=== PATIENT | male | born 1935 | race Caucasian/White ===

== ENCOUNTER 2017-01-21 13:08 | Inpatient (IN) | payer MEDICARE ==
[~2017-01-21] VITALS: Ht 172.7 cm; Wt 89.9 kg
[2017-02-02] MEDS ORDERED: CAL-500T PO (12:37)
[2017-02-02] MEDS ORDERED: APIX5TAB PO (12:37)
[2017-02-02] MEDS ORDERED: ZYRT10CA PO (12:37)
[2017-02-02] MEDS ORDERED: MOME0.1O20 TOPICAL (12:37)
[2017-02-02] MEDS ORDERED: GLIP10TA6 PO (12:37)
[2017-02-02] MEDS ORDERED: FURO20TA PO (12:37)
[2017-02-02] MEDS ORDERED: ROSU1TAB6 PO (12:37)
[2017-02-02] MEDS ORDERED: METF1000 PO (12:37)
[2017-02-02] MEDS ORDERED: ULOR40TA PO (12:37)
[2017-02-02] MEDS ORDERED: VALS1TAB65 PO (12:37)
[2017-02-02] MEDS ORDERED: OMEG100010 PO (12:37)
[2017-02-02] MEDS ORDERED: LACTCAP8 PO (12:37)
--- NOTE | 2017-02-12 | MH ---
cc: JENNY AGUILAR DATE OF ADMISSION: 02/23/2017 ADMITTING DIAGNOSIS: PREOPERATIVE DIAGNOSIS Advanced osteoarthritis right knee PLAN PROCEDURE Right total knee arthroplasty. CHIEF COMPLAINT AND HISTORY OF PRESENT ILLNESS This 82-year-old male has a long history of bilateral knee osteoarthritis. The patient has undergone a previous left total knee arthroplasty in and out of town location with mild residual discomfort. In addition, he was treated for his right knee in that office with corticosteroid injection and medication. He did initially get transient relief with injection. The patient has also been treated with therapy and viscosupplementation as well as bracing and attempts at weight loss. This problem, however, has been progressive. He is now severely limited in his activity. He has been under treatment by his medical physician and emergency communications officer prior to undergoing surgical management. He has been cleared by both. Given the alternatives of treatment presents for total knee arthroplasty at this time. The patient's x-rays are consistent with advanced osteoarthritis which is worse in the medial compartment with [id number] apposition, osteophyte formation and associated genu varus. PAST MEDICAL HISTORY Significant for: 1. Arthritis 2. BPH 3. Type 2 diabetes 4. Gout. 5. Heart disease. 6. Hypertension. 7. Hyperlipidemia. 8. Sleep apnea. PREVIOUS SURGERIES: 1. Left total knee arthroplasty. 2. Tonsillectomy and adenoidectomy 3. Herniorrhaphy 4. Cataract surgery. 5. Appendectomy. CURRENT MEDICATIONS: 1. Calcium. 2. Magnesium plus D. 3. Clopidogrel 75 mg 4. Eliquis 5 mg. 5. Furosemide 20 mg. 6. Glipizide ER 10 mg. 7. Metformin 1000 milligrams 8. Assaria III. 9. Probiotic. 10. Rosuvastatin 11. Eloric. 12. Valsartan 160 milligrams 13. Zyrtec ALLERGIES: Denies FAMILY HISTORY Is significant for prostate cancer, diabetes, colon cancer, heart disease and ulcer disease. SOCIAL HISTORY The patient denies recent tobacco use. He uses alcohol occasionally. He is . Currently is retired. REVIEW OF SYSTEMS: Otherwise noncontributory. PHYSICAL EXAMINATION Height 5'8", weight 220, BMI 33.5. VITAL SIGNS: Blood pressure 130/78. An otherwise healthy-appearing male in no obvious distress. HEENT: Normocephalic, atraumatic. Pupils equal, round and reactive to light. Extraocular muscles are intact. Oropharynx is clear. Neck: The neck is supple. Lungs: The lungs are clear to auscultation. Heart: Heart has a regular rate and rhythm. Abdomen: The abdomen is soft, nondistended. Bowel sounds are present. and rectal: Examinations are deferred. Extremities: Reveals no cyanosis, clubbing or edema. The right knee has a small effusion. There are hypertrophic changes. He has a genu varus. He lacks full extension. He requires the use of a cane for ambulation. Neurologically no focal deficit. ASSESSMENT Advanced osteoarthritis right knee PLAN Given the alternatives of treatment the patient does wish to pursue total knee arthroplasty at this time based upon the persistent and progressive nature of his symptomatology, its limitation of his daily activity, and its unresponsiveness to treatment. The nature of the planned surgical procedure, risks, expected benefits, as well as the postoperative expectations have been discussed with he and his in detail. In addition, the alternatives of treatment and risks of same were discussed. The possibility of the procedure not improving his symptomatology was discussed and he acknowledges full understanding and consents to it. MD KEVAN Spicer/SONG /11:05 PM /11:46 PM
[2017-02-23] MEDS ORDERED: SODIUM CHLORID 0.9% 500 ML IV PRN (06:30)
[2017-02-23] MEDS ORDERED: METOPROLOL TARTRATE 25 MG TAB PO PRN (06:30)
[2017-02-23] MEDS ORDERED: INSULIN HUMAN REGULAR 1,000 UNITS/10 ML VIAL SQ PRN (06:30)
[2017-02-23] MEDS ORDERED: POVIDONE IODINE 5% (ANTISEPSIS KIT) 4 APPLICATIONS EACH NARE PRN (06:30)
[2017-02-23] MEDS ORDERED: LACTATED RINGER'S 1000 ML IV PRN (06:30)
[2017-02-23] MEDS ORDERED: CHLORHEXIDINE GLUCONATE 2 % 1 PACK (2 CLOTHS) TOPICAL PRN (06:30)
[2017-02-23] MEDS ORDERED: ceFAZolin 2 GM PREMIX 50 ML IV SCH (06:30)
[2017-02-23] MEDS ORDERED: VANCOMYCIN 1000 MG/NS 250 ML (for <70 kg) IV SCH ×2 (06:30)
[2017-02-23 06:39] VITALS: BP 115/74; PULSE 57; RESP 20; TEMP 98; O2SAT 96
[2017-02-23] MEDS ORDERED: ceFAZolin INJ 1,000 MG VIAL ONE (06:56)
[2017-02-23] MEDS ORDERED: SODIUM CHLORIDE 0.9% 20 ML VIAL ONE (06:56)
[2017-02-23] MEDS ORDERED: ACETAMINOPHEN 1000 MG/100 ML VIAL IV ONE (07:23)
[2017-02-23] MEDS ORDERED: MIDAZOLAM HCL 2 MG/2 ML VIAL ONE (07:23)
[2017-02-23] MEDS ORDERED: FAMOTIDINE 20 MG/2 ML VIAL ONE (07:23)
[2017-02-23] MEDS ORDERED: fentaNYL CITRATE 250 MCG/5 ML AMP ONE (07:33)
--- NOTE | 2017-02-23 09:42 | PD.OP ---
cc: Victorino Roque MD Operative Report Date of Surgery: Feb 23, 2017 Preoperative Diagnosis: (1) Osteoarthritis of right knee Postoperative Diagnosis: (1) Osteoarthritis of right knee Procedure: Right total knee arthroplasty Implants used: Biomet Vanguard total knee system size 75 press-fit femoral component, size 79 cemented tibial component with a 34 cemented polyethylene patellar button and a 10 mm polyethylene tibial bearing Anesthesia: General with preoperative regional block Surgeon: Victorino Roque [employer] Worker(s): Caryn Wadsworth PA-C (Ashley) The surgical procedure was assisted by my physician's asset protection assistant. Her presence was necessary throughout the case for manipulation and positioning of the surgical extremity. My PA was assisting me throughout the duration of this procedure. The skill set of the physician asset protection assistant was medically necessary to complete this procedure. During the surgical case the surgical attendant was working at the back table and the physician asset protection assistant was directly assisting me. Operation and Findings: Indications: This 82-year-old male has a long history of bilateral knee osteoarthritis. He has undergone previous left total knee arthroplasty in an out-of-town location. He has had multiple treatment modalities for the right knee however is now unresponsive. X-rays are consistent with advanced osteoarthritis worse in the medial compartment with tebb-aj-hlba apposition, osteophyte formation and associated genu varus. The patient is very limited in his activity and given the alternatives of the treatment presents for total knee arthroplasty. Procedure and findings: The patient was taken to the operative suite and after undergoing an adequate level of general anesthesia preceded by a regional block was kept supine on the operating table. Preoperative antibiotics consisted of Ancef 2g IV and vancomycin 1 g IV. The right lower extremity was then prepped and draped in usual sterile fashion with alcohol and Hibiclens. A standard anterior approach the knee was made with incision centered over the medial one third of the patella. This was carried down through skin and subcutaneous tense tissue with a knife. The quadricep tendon was identified proximally and the patellar tendon distally. A medial parapatellar arthrotomy was made. A small joint effusion was evacuated. Upon entering the knee joint is noted to be marked degenerative changes which were tricompartmental in nature but worse in the medial compartment with total obliteration of the articular cartilage and bony erosion of the tibial plateau and femoral condyle. The remnant of the ACL was excised. The menisci were excised. Osteophytes were removed. Attention was first focused on the distal femur where an intramedullary guide was used to make a 5 valgus cut. A sizing jig was then applied and a 75 selected. With the cutting block in place the anterior, posterior and chamfer cuts were made. Attention was then focused on the proximal tibia. An extramedullary guide was used. Approximately 4 mm of bone was resected. The varus/valgus alignment was also checked with an extramedullary guide. The tibia was then sized to a 79. A freehand technique was utilized on the patella. This was sized to a 34. Drill holes were made and trial components placed. The 10 mm tibial bearing gave the best range of motion and stability. There was good patellar tracking. These components were therefore selected. The femoral drill holes were made. The tibial cement punches were made. The wound was thoroughly irrigated with pulse lavage. Bone cement was prepared on the back table. After thorough drying it was applied to the proximal tibia. The tibial component was then impacted in the place. All excess bone cement was removed. The tibial insert was then placed and the locking mechanism seated. The femoral component was then impacted in the place. The knee was then placed in full extension for further compression. After thorough drying bone cement was applied to the undersurface of the patella. The patellar button was seated and held with a compression clamp. All excess bone cement was removed. Once the cement had matured good range of motion, patellar tracking and stability was again noted. The wound was again thoroughly irrigated with pulse lavage. AutoVac drains were left in place. The incision was closed in layers utilizing #1 Vicryl suture on the extensor mechanism, 0 Vicryl suture on the deep tissue, 2-0 Vicryl suture on the subcutaneous tissue and tony on the skin. Sterile dressings were applied the patient was awakened transferred to the hospital bed and taken to the recovery room in stable condition. Estimated blood loss: Minimal Complications: None Tourniquet time: 81 minutes Victorino Roque MD Feb 23, 2017 09:42
[2017-02-23] MEDS ORDERED: BISACODYL 10 MG SUPP RECTAL PRN (09:45)
[2017-02-23] MEDS ORDERED: ACETAMINOPHEN 325 MG TAB PO PRN (09:45)
[2017-02-23] MEDS ORDERED: TEMAZEPAM 15 MG CAP PO PRN (09:45)
[2017-02-23] MEDS ORDERED: ALUMINUM/MAGNESIUM/SIMETH 30 ML CUP PO PRN (09:45)
[2017-02-23] MEDS ORDERED: VALSARTAN 160 MG TAB PO PRN (09:45)
[2017-02-23] MEDS ORDERED: POVIDONE IODINE 10% SOLN 118 ML BOTTLE TOPICAL PRN (09:45)
[2017-02-23] MEDS ORDERED: diphenhydrAMINE HCL 25 MG CAP PO PRN (09:45)
[2017-02-23] MEDS ORDERED: ONDANSETRON HCL 4 MG/2 ML VIAL IVP PRN (09:45)
[2017-02-23] MEDS ORDERED: Post-op Orders (for Pharmacy) MISC XX ONE (09:45)
[2017-02-23] MEDS ORDERED: oxyCODONE/ACETAMINOPHEN 5 MG/325 MG TAB PO PRN (09:45)
[2017-02-23] MEDS ORDERED: SODIUM CHLORIDE 0.9% FLUSH 10 ML FLUSH IV FLUSH PRN (09:45)
[2017-02-23] MEDS ORDERED: NALOXONE HCL 0.4 MG/ML AMP IV PRN (09:45)
[2017-02-23] MEDS ORDERED: *morphine SULFATE 8 MG/ML PERIprocedure ONLY ONE (10:02)
[2017-02-23] MEDS ORDERED: BUPIVACAINE HCL PF 0.5% 30 ML VIAL NERV BLOCK ONE (10:28)
[2017-02-23] MEDS: LACTATED RINGER'S 1000 ML INJ 1,000 ML IV SCH ×2 (10:30→19:51)
[2017-02-23] MEDS ORDERED: MORPHINE SULFATE 30 MG/30 ML PCA IV SCH (11:00)
[2017-02-23] MEDS ORDERED: MORPHINE SULFATE 4 MG/ML INJ IV PUSH PRN (11:00)
[2017-02-23] MEDS ORDERED: PILL SPLITTER OTHER PRN (11:30)
[2017-02-23] MEDS ORDERED: MOMETASONE TOPICAL (11:45)
--- NOTE | 2017-02-23 11:51 | RADRPT ---
EXAM DATE/TIME: 02/23/2017 11:24 [facility] COMPARISON: No previous studies available for comparison. INDICATIONS : Post op knee surgery MEDICAL HISTORY : None. SURGICAL HISTORY : None. ENCOUNTER: Initial ACUITY: 1 day PAIN SCORE: Non-responsive. LOCATION: Right knee FINDINGS: Two view examination of the right knee demonstrates total knee arthroplasty. All 3 components are pro perly positioned. Suprapatellar drain in place. CONCLUSION: Appropriate postoperative appearance of the right knee status post total arthroplasty. Demetrio Weir MD on February 23, 2017 at 11:49 Board Certified Radiologist. This report was verified electronically.
[2017-02-23 11:58] VITALS: BP 138/72; PULSE 52; RESP 16; TEMP 95.6; O2SAT 98
[2017-02-23] MEDS ORDERED: ONDANSETRON HCL 4 MG/2 ML VIAL IV PUSH ONE (12:00)
[2017-02-23] MEDS ORDERED: NEOSTIGMINE 3 MG/3 ML SYR IV ONE (12:00)
[2017-02-23] MEDS ORDERED: PHENYLEPH/NS 1000 MCG/10 ML SYR IV ONE (12:00)
[2017-02-23] MEDS ORDERED: PROPOFOL 200 MG/20 ML AMP IV ONE (12:00)
[2017-02-23] MEDS ORDERED: LACTATED RINGER'S 1000 ML INJ 1,000 ML IV ONE (12:00)
[2017-02-23] MEDS ORDERED: DO NOT ADM ANY ANTICOAGULANT DRUGS PRN (12:15)
[2017-02-23] MEDS ORDERED: GLUCAGON 1 MG/ML VIAL OTHER PRN (13:45)
[2017-02-23] MEDS ORDERED: DEXTROSE 50% IN WATER 50 ML VIAL(D50) IV PUSH PRN (13:45)
--- NOTE | 2017-02-23 13:49 | PD.CONS ---
HPI Service [facility] Consult Requested By Reason for Consult medical management Primary Care Physician Darrel Ring Mai, MD Diagnoses: History of Present Illness patient is a 82 y/o male with history of osteoarthritis,hypertension,CAD, diabetes, atrial fibrillation who underwent right total knee arthroplasty today. at the time of my evaluation he was resting comfortably with no distress. pain to the right knee was mild. otherwise denies chest pain, sob, dizziness, nausea. Review of Systems Constitutional: DENIES: Fever, Weight loss, Chills, Night Sweats Eyes: DENIES: Blurred vision, Diplopia, Vision loss, Double Vision Ears, nose, mouth, throat: DENIES: Tinnitus, Vertigo, Throat pain, Epistaxis Respiratory: DENIES: Apneas, Cough, Snoring, Wheezing, Hemoptysis, Sputum production, Shortness of breath Cardiovascular: DENIES: Chest pain, Palpitations, Syncope, Dyspnea on Exertion , PND, Lower Extremity Edema, Orthopnea, Claudication Gastrointestinal: DENIES: Abdominal pain, Black stools, Bloody stools, Constipation, Diarrhea, Nausea, Vomiting, Difficulty Swallowing, Anorexia Genitourinary: DENIES: Urinary frequency, Urgency, Hematuria, Dysuria Musculoskeletal: COMPLAINS OF: Joint pain (right knee), DENIES: Muscle aches, Stiffness, Joint Swelling Integumentary: DENIES: Rash Neurologic: DENIES: Abnormal gait, Headache, Localized weakness, Paresthesias, Seizures, Speech Problems, Tremor, Poor Balance Psychiatric: DENIES: Anxiety, Confusion, Mood changes, Depression, Hallucinations, Agitation, Suicidal Ideation, Homicidal Ideation, Delusions Past Family Social History Allergies: Coded Allergies: No Known Allergies (Unverified , 02/23/17) Past Medical History hypertension osteoarthritis a-fib CAD diabetes mellitus gout Past Surgical History TURP knee surgery Reported Medications uloric rosuvastatin valsartan eliquis metformin glipizide Active Ordered Medications Current Medications Chlorhexidine Gluconate 1 applic 1 applic ONCE TOPICAL ; Start 02/23/17 at 06:30 ; Stop 02/26/17 at 06:29 Cefazolin Sodium/ Dextrose 50 ml @ 100 mls/hr PRINT FINISHING WORKER IV Last administered on 02/23/17t 06:45; Start 02/23/17 at 06:30; Stop 02/26/17 at 06:29 Vancomycin HCl 1000 mg/Sodium Chloride 250 ml @ 250 mls/hr PRINT FINISHING WORKER IV Last administered on 02/23/17 06:58; Start 02/23/17 at 06:30; Stop 02/26/17 at 06:29 Lactated Ringer's 1,000 ml @ 0 mls/hr Q0M PRN IV SEE LABEL COMMENTS Last administered on 02/23/17 06:35; Start 02/23/17 at 06:30; Stop 02/23/17 at 11:44; Status DC Sodium Chloride (NS 500 ml Inj) 500 ml @ 30 mls/hr [id number] PRN IV SEE LABEL COMMENTS; Start 02/23/17 at 06:30; Stop 02/23/17 at 11:44; Status DC Metoprolol Tartrate (Lopressor) 25 mg PRINT FINISHING WORKER PRN PO SEE LABEL COMMENTS; Start 02/23/17 at 06:30; Stop 02/26/17 at 06:29 Povidone Iodine (Betadine 5% Antisepsis Kit) 1 applic PRINT FINISHING WORKER PRN EACH NARE SEE LABEL COMMENTS; Start 02/23/17 at 06:30; Stop 02/26/17 at 06:29 Chlorhexidine Gluconate (Chlorhexidine 2% Cloth) 3 pack PRINT FINISHING WORKER PRN TOPICAL SEE LABEL COMMENTS; Start 02/23/17 at 06:30; Stop 02/26/17 at 06:29 Insulin Human Regular (NovoLIN R INJ) See Protocol Table ... PRINT FINISHING WORKER PRN SQ SEE PROTOCOL TABLE; Start 02/23/17 at 06:30; Stop 02/26/17 at 06:29 Sodium Chloride (Sodium Chloride 0.9% Inj) 20 ml STK-MED ONCE .ROUTE ; Start 02/23/17 at 06:56; Stop 02/23/17 at 06:57; Status DC Cefazolin Sodium (Ancef Inj) 2,000 mg STK-MED ONCE .ROUTE Last administered on 02/23/17 08:14; Start 02/23/17 at 06:56; Stop 02/23/17 at 06:57; Status DC Acetaminophen (Ofirmev Inj) 1,000 mg STK-MED ONCE IV ; Start 02/23/17 at 07:23; Stop 02/23/17 at 07:24; Status DC Midazolam HCl (Versed Inj) 2 mg STK-MED ONCE .ROUTE ; Start 02/23/17 at 07:23; Stop 02/23/17 at 07:24; Status DC Famotidine (Pepcid Inj) 20 mg STK-MED ONCE .ROUTE ; Start 02/23/17 at 07:23; Stop 02/23/17 at 07:24; Status DC Fentanyl Citrate (fentaNYL INJ) 250 mcg STK-MED ONCE .ROUTE ; Start 02/23/17 at 07:33; Stop 02/23/17 at 07:34; Status DC Apixaban (Eliquis) 5 mg BID PO ; Start 02/23/17 at 21:00; Status UNV Cetirizine HCl (ZyrTEC) 10 mg DAILY PO ; Start 02/24/17 at 09:00 Furosemide (Lasix) 20 mg DAILY PO ; Start 02/24/17 at 09:00 Glipizide (Glucotrol) 10 mg DAILY PO ; Start 02/24/17 at 09:00 Metformin HCl (Glucophage) 1,000 mg BIDPC PO ; Start 02/23/17 at 18:00 Valsartan (Diovan) 160 mg HS PRN PO SBP>160, DBP>90; Start 02/23/17 at 09:45 Non-Formulary Medication 1 tab DAILY PO NS; Start 02/24/17 at 09:00; Status UNV Patient Own Medication PT OWN MED: ULORIC (FEBUXOST... DAILY PO ; Start 02/24/17 at 09:00; Status Future Hold Patient Own Medication PT OWN MED: MOMETASONE TOPI... DAILY PRN TOPICAL ROSACEA ; Start 02/23/17 at 11:45; Status Hold Non-Formulary Medication 4 cap HS PO ; Start 02/23/17 at 21:00; Status UNV Atorvastatin Calcium 20 mg 20 mg HS PO ; Start 02/23/17 at 21:00 Lactated Ringer's (Lr 1000 ml Inj) 1,000 ml @ 80 mls/hr [id number] IV Last administered on 02/23/17t 10:30; Start 02/23/17 at 11:00 Sodium Chloride (NS Flush) 2 ml UNSCH PRN IV FLUSH FLUSH AFTER USING IV ACCESS ; Start 02/23/17 at 09:45 Sodium Chloride 2 ml 2 ml BID IV FLUSH ; Start 02/23/17 at 21:00 Cefazolin Sodium/ Dextrose (Ancef 2 Gm Premix) 50 ml @ 100 mls/hr Q6H IV ; Start 02/23/17 at 14:00; Stop 02/24/17 at 02:29 Miscellaneous Information (Post-op Orders (for Pharmacy)) STAT ONCE XX ; Start 02/23/17 at 09:45; Stop 02/23/17 at 10:51; Status DC Miscellaneous Medication ([facility]) ONCE ONCE XX ; Start 02/25 at 12:00; Stop 02/25/17 at 12:01 Morphine Sulfate (Morphine Inj) 4 mg Q3H PRN IV PUSH Pain >7 when off SLOT MANAGER; Start 02/23/17 at 11:00 Oxycodone/ Acetaminophen (Percocet 5-325 Mg) 1 tab Q4H PRN PO PAIN LESS THAN 5 ON SCALE; Start 02/23/17 at 09:45 Oxycodone/ Acetaminophen (Percocet 5-325 Mg) 2 tab Q4H PRN PO PAIN SCALE 5 TO 10; Start 02/23/17 at 09:45 Acetaminophen (Tylenol) 650 mg Q6H PRN PO TEMPERATURE > 101 F; Start 02/23/17 at 09:45 Multivitamins/ Minerals Therapeutic (Theragran M Tab) 1 tab BID PO ; Start at 21:00; Stop 04/25/17 at 20:59 Ondansetron HCl (Zofran Inj) 4 mg Q6H PRN IVP NAUSEA OR VOMITING; Start at 09:45 Docusate Sodium (Colace) 100 mg BID PO ; Start 02/24/17 at 21:00 Al Hydrox/Mg Hydrox/Simethicone (Mag-Al Plus Susp Liq) 30 ml Q6H PRN PO INDIGESTION; Start 02/23/17 at 09:45 Temazepam (Restoril) 15 mg HS PRN PO SLEEP; Start 02/23/17 at 09:45 Bisacodyl (Dulcolax Supp) 10 mg DAILY PRN OK CONSTIPATION; Start 02/23/17 at 09: 45; Status UNV Magnesium Hydroxide (Milk Of Magnesia Liq) 30 ml DAILY PRN PO CONSTIPATION; Start 02/23/17 at 09:45; Status UNV Povidone Iodine (Betadine 10% Top Soln) 30 applic UNSCH X1 PRN TOPICAL WOUND CARE; Start 02/23/17 at 09:45; Stop 02/25/17 at 09:44 Naloxone HCl (Narcan Inj) 0.4 mg UNSCH PRN IV RESPIRATORY RATE LESS THAN 10; Start 02/23/17 at 09:45 Diphenhydramine HCl (Benadryl) 25 mg Q6H PRN PO ITCHING; Start 02/23/17 at 09:45 Morphine Sulfate (Morphine 1 Mg/ ml SLOT MANAGER) 30 mg UNSCH IV Last administered on 11:27; Start 02/23/17 at 11:00; Stop 02/25/17 at 12:00 SLOT MANAGER Dosage Infused (Pha) 1 Q8HR .XX ; Start 02/23/17 at 14:00; Stop 02/25/17 at 15 :00 Morphine Sulfate (*morphine INJ PERIprocedure ONLY) 8 mg STK-MED ONCE .ROUTE Last administered on 02/23/17 10:03; Start 02/23/17 at 10:02; Stop 02/23/17 at 10: 03; Status DC Calcium Carbonate (Oscal) 500 mg DAILY@11 PO ; Start 02/24/17 at 11:00 Magnesium Oxide (Mag-Ox) 200 mg DAILY@11 PO ; Start 02/24/17 at 11:00 Miscellaneous (Pill Splitter) 1 ea UNSCH PRN OTHER SEE LABEL COMMENTS; Start at 11:30 Miscellaneous Information ALL NURSING DEPARTME... UNSCH PRN .XX SEE LABEL COMMENTS; Start 02/23/17 at 12:15; Stop 02/24/17 at 12:14 Family History not relevant to this consult. Social History no smoking. drinks rarely. Physical Exam Vital Signs Vital Signs Date Time Temp Pulse Resp B/P Pulse Ox O2 Delivery O2 Flow Rate FiO2 02/23/17 11:58 95.6 52 16 138/72 98 02/23/17 11:27 12 02/23/17 10:45 97.4 60 15 141/84 99 Nasal Cannula 2 02/23/17 10:30 62 15 145/88 96 Nasal Cannula 2 02/23/17 10:15 61 15 148/94 99 Nasal Cannula 3 02/23/17 10:00 60 14 158/96 100 Nasal Cannula 3 02/23/17 09:50 97.7 63 14 150/94 99 Nasal Cannula 3 02/23/17 06:39 98.0 57 20 115/74 96 Physical Exam GENERAL: This is a well-nourished, well-developed patient, in no apparent distress. SKIN: No rashes, ecchymoses or lesions. Cool and dry. HEAD: Atraumatic. Normocephalic. No temporal or scalp tenderness. EYES: Pupils equal round and reactive. Extraocular motions intact. No scleral icterus. No injection or drainage. ENT: Nose without bleeding, purulent drainage or septal hematoma. Throat without erythema, tonsillar hypertrophy or exudate. Uvula midline. Airway patent. NECK: Trachea midline. No JVD or lymphadenopathy. Supple, nontender, no meningeal signs. CARDIOVASCULAR: Regular rate and rhythm without murmurs, gallops, or rubs. RESPIRATORY: Clear to auscultation. Breath sounds equal bilaterally. No wheezes , rales, or rhonchi. GASTROINTESTINAL: Abdomen soft, non-tender, nondistended. No hepato-splenomegaly , or palpable masses. No guarding. MUSCULOSKELETAL: right knee covered with clean dressing. NEUROLOGICAL: Awake and alert. Cranial nerves II through XII intact. Motor and sensory grossly within normal limits. Five out of 5 muscle strength in all muscle groups. Normal speech. Laboratory Laboratory Tests Test 02/23/17 06:35 Blood Type O POSITIVE Antibody Screen NEGATIVE Blood Bank Comment Imaging Last Impressions Knee X-Ray 02/23/17 0000 Signed Impressions: Service Date/Time: Thursday, February 23, 2017 11:24 - CONCLUSION: Appropriate postoperative appearance of the right knee status post total arthroplasty. Demetrio Weir MD Assessment and Plan Assessment and Plan A/P - osteoarthritis of the right hip- s/p right total knee arthroplasty continue with pain control and PT- management per ortho. -CAD- s/p stent placement; continue statin and eliquis -hypertension; on Valsartan- will monitor and adjust the regimen as needed -atrial fibrillation- rate is controlled- resumed Eliquis -diabetes mellitus; started back on home meds- accu-check with SSI -DVT prophylaxis; on eliquis- thank you for the consult. Discussed Condition With the patient. Saulo Sanchez MD Feb 23, 2017 13:49
[2017-02-23] MEDS: PCA - TOTAL MG MORPHINE DELIVERED PER SHIFT SCH ×2 (14:00→21:33)
[2017-02-23 14:12] VITALS: O2SAT 98
[2017-02-23] MEDS: ceFAZolin 2 GM PREMIX 50 ML IV SCH ×2 (14:36→19:50)
[2017-02-23 15:39] VITALS: BP 114/58; PULSE 57; RESP 17; TEMP 95.7; O2SAT 98
[2017-02-23] MEDS: INSULIN ASPART SUPPLEMENTAL SCALE SQ SCH ×2 (16:00→19:53)
[2017-02-23] MEDS: metFORMIN HCL 500 MG TAB PO SCH (17:57)
[2017-02-23] MEDS: APIXABAN 5 MG TABLET PO SCH (19:51)
[2017-02-23] MEDS: ATORVASTATIN 20 MG TAB PO SCH (19:51)
[2017-02-23] MEDS: SODIUM CHLORIDE 0.9% FLUSH 10 ML FLUSH IV FLUSH SCH (19:53)
[2017-02-23] MEDS: MAGNESIUM HYDROXIDE SUSP 30 ML CUP PO PRN (19:54)
[2017-02-23 20:00] VITALS: BP 124/64; PULSE 85; RESP 16; TEMP 98.3; O2SAT 97
[2017-02-23] MEDS ORDERED: OMEGA PO SCH (21:00)
[2017-02-23] MEDS ORDERED: FATTY ACIDS PO SCH (21:00)
[2017-02-24] VITALS (7 sets, daily range): BP systolic 103–127; BP diastolic 56–74; PULSE 72–95; RESP 16–18; TEMP 97.3–100.1; O2SAT 93–96
[2017-02-24] MEDS: ceFAZolin 2 GM PREMIX 50 ML IV SCH (02:10)
[2017-02-24] MEDS: PCA - TOTAL MG MORPHINE DELIVERED PER SHIFT SCH ×3 (06:00→20:54)
[2017-02-24] MEDS: CHLORHEXIDINE GLUCONATE 4% SOLN 120 ML BTL TOPICAL SCH (06:12)
[2017-02-24] MEDS: INSULIN ASPART SUPPLEMENTAL SCALE SQ SCH ×4 (06:12→20:54)
[2017-02-24 06:24] LABS: HEMATOCRIT 32.4 % (39.0-51.0); REVIEW FLAG FINAL
[2017-02-24] MEDS ORDERED: [UNRECOGNIZED DRUG - OTHER] PO SCH (09:00)
[2017-02-24] MEDS ORDERED: FEBUXOSTAT PO SCH (09:00)
[2017-02-24] MEDS ORDERED: CALCIUM MAGNESIUM PO SCH (09:00)
[2017-02-24] MEDS: glipiZIDE 10 MG TAB PO SCH (09:42)
[2017-02-24] MEDS: CETIRIZINE HCL 10 MG TAB PO SCH (09:42)
[2017-02-24] MEDS: metFORMIN HCL 500 MG TAB PO SCH ×2 (09:42→18:31)
[2017-02-24] MEDS: FUROSEMIDE 20 MG TAB PO SCH (09:42)
[2017-02-24] MEDS: APIXABAN 5 MG TABLET PO SCH ×2 (09:42→20:53)
[2017-02-24] MEDS: SODIUM CHLORIDE 0.9% FLUSH 10 ML FLUSH IV FLUSH SCH ×2 (09:43→20:53)
[2017-02-24] MEDS: CALCIUM CARBONATE 1.25 GM (CA 500 MG) TAB PO SCH (11:49)
[2017-02-24] MEDS: MAGNESIUM OXIDE 400 MG TAB PO SCH (11:49)
[2017-02-24] MEDS: LACTATED RINGER'S 1000 ML INJ 1,000 ML IV SCH ×2 (12:00→23:46)
--- NOTE | 2017-02-24 13:49 | HHI.PR ---
Subjective Remarks Deferred entry, patient seen earlier at 1:45 PM. Patient had a low-grade fever with a MAXIMUM TEMPERATURE of 100.1 last night. The patient denies diarrhea, nausea or vomiting. Denies cough, denies dysuria. Denies chest pain or shortness of breath. Objective Vitals Vital Signs Date Time Temp Pulse Resp B/P Pulse Ox O2 Delivery O2 Flow Rate FiO2 02/24/17 11:52 99.3 75 18 109/63 96 02/24/17 09:47 2.00 02/24/17 08:00 98.4 72 18 115/65 94 02/24/17 06:00 17 02/24/17 04:00 98.8 93 16 103/62 93 02/24/17 00:00 100.1 74 17 105/58 95 02/23/17 21:33 17 02/23/17 20:00 98.3 85 16 124/64 97 02/23/17 15:39 95.7 57 17 114/58 98 02/23/17 14:12 98 Nasal Cannula 3.00 I/O 02/23/17 02/23/17 02/23/17 02/24/17 02/24/17 02/24/17 07:00 15:00 23:00 07:00 15:00 23:00 Intake Total 1940 ml 1073 ml 989 ml Output Total 205 ml 590 ml 380 ml Balance 1735 ml 483 ml 609 ml Intake Oral 640 ml 360 ml 240 ml IV Total 713 ml 749 ml Other 1300 ml Output Urine Total 350 ml 250 ml Drainage Total 155 ml 240 ml 130 ml Estimated Blood Loss 50 ml # Voids 1 # Bowel Movements 0 0 0 Result Diagram: 02/24/17 0556 Objective Remarks GENERAL: This is a well-nourished, well-developed patient, in no apparent distress. SKIN: No rashes, ecchymoses or lesions. Cool and dry. HEAD: Atraumatic. Normocephalic. No temporal or scalp tenderness. EYES: Pupils equal round and reactive. Extraocular motions intact. No scleral icterus. No injection or drainage. ENT: Nose without bleeding, purulent drainage or septal hematoma. Throat without erythema, tonsillar hypertrophy or exudate. Uvula midline. Airway patent. NECK: Trachea midline. No JVD or lymphadenopathy. Supple, nontender, no meningeal signs. CARDIOVASCULAR: Regular rate and rhythm without murmurs, gallops, or rubs. RESPIRATORY: Clear to auscultation. Breath sounds equal bilaterally. No wheezes , rales, or rhonchi. GASTROINTESTINAL: Abdomen soft, non-tender, nondistended. No hepato-splenomegaly , or palpable masses. No guarding. MUSCULOSKELETAL: right knee covered with clean dressing. NEUROLOGICAL: Awake and alert. Cranial nerves II through XII intact. Motor and sensory grossly within normal limits. Five out of 5 muscle strength in all muscle groups. Normal speech. Procedures Status post right total knee arthroplasty on 02/23/17. Medications and IVs Current Medications Medications (Trade) Dose Ordered Sig/Kang Route Start Time Stop Time Status Last Admin (Hibiclens 4% Top Soln) 1 applic ONCE TOPICAL 02/23/17 06:30 02/26/17 06:29 (Eliquis) 5 mg BID PO 02/23/17 21:00 02/24/17 09:42 (ZyrTEC) 10 mg DAILY PO 02/24/17 09:00 02/24/17 09:42 (Lasix) 20 mg DAILY PO 02/24/17 09:00 02/24/17 09:42 (Glucotrol) 10 mg DAILY PO 02/24/17 09:00 02/24/17 09:42 (Glucophage) 1,000 mg BIDPC PO 02/23/17 18:00 02/24/17 18:31 (Diovan) 160 mg HS PRN PO 02/23/17 09:45 Patient Own Medication PT OWN MED: ULORIC (FEBUXOST... DAILY PO 02/24/17 09:00 Hold Patient Own Medication PT OWN MED: MOMETASONE TOPI... DAILY PRN TOPICAL 02/23/17 11:45 Hold Atorvastatin Calcium 20 mg 20 mg HS PO 02/23/17 21:00 02/23/17 19:51 (Lr 1000 ml Inj) 1,000 ml @ 80 mls/hr [id number] IV 02/23/17 11:00 02/24/17 12:00 (NS Flush) 2 ml UNSCH PRN IV FLUSH 02/23/17 09:45 (NS Flush) 2 ml BID IV FLUSH 02/23/17 21:00 02/24/17 09:43 ([facility]) ONCE ONCE XX 02/25/17 12:00 02/25/17 12:01 (Morphine Inj) 4 mg Q3H PRN IV PUSH 02/23/17 11:00 (Percocet 5-325 Mg) 1 tab Q4H PRN PO 02/23/17 09:45 (Percocet 5-325 Mg) 2 tab Q4H PRN PO 02/23/17 09:45 (Tylenol) 650 mg Q6H PRN PO 02/23/17 09:45 (Theragran M Tab) 1 tab BID PO 02/24/17 21:00 04/25/17 20:59 (Zofran Inj) 4 mg Q6H PRN IVP 02/23/17 09:45 (Colace) 100 mg BID PO 02/24/17 21:00 (Mag-Al Plus Susp Liq) 30 ml Q6H PRN PO 02/23/17 09:45 (Restoril) 15 mg HS PRN PO 02/23/17 09:45 (Dulcolax Supp) 10 mg DAILY PRN RECTAL 02/23/17 09:45 (Milk Of Magnesia Liq) 30 ml DAILY PRN PO 02/23/17 09:45 02/23/17 19:54 (Narcan Inj) 0.4 mg UNSCH PRN IV 02/23/17 09:45 (Benadryl) 25 mg Q6H PRN PO 02/23/17 09:45 (Morphine 1 Mg/ ml [employer]) 30 mg UNSCH IV 02/23/17 11:00 02/25/17 12:00 02/23/17 11:27 [employer] Dosage Infused (Pha) 1 Q8HR .XX 02/23/17 14:00 02/25/17 15:00 02/24/17 14:00 (Oscal) 500 mg DAILY@11 PO 02/24/17 11:00 02/24/17 11:49 (Mag-Ox) 200 mg DAILY@11 PO 02/24/17 11:00 02/24/17 11:49 (Pill Splitter) 1 ea UNSCH PRN OTHER 02/23/17 11:30 (D50w (Vial) Inj) 25 ml UNSCH PRN IV PUSH 02/23/17 13:45 (Glucagon Inj) 1 mg UNSCH PRN OTHER 02/23/17 13:45 A/P Problem List: (1) Total knee replacement status ICD Code: Z96.659 Status: Acute Plan: Status post right knee arthroplasty. Continue management as per orthopedic surgery. (2) Hypertension ICD Code: I10 Status: Chronic Plan: The pressure seems to be stable. Continue valsartan. (3) Hyperlipemia ICD Code: E78.5 Status: Acute Plan: Continue statin. (4) Type 2 diabetes mellitus ICD Code: E11.9 Status: Acute Plan: Patient currently on metformin and is disabled with insulin NovoLog. Blood sugar seems to be stable. (5) Osteoarthritis of right knee ICD Code: M17.11 Status: Acute Plan: As above. (6) Low grade fever ICD Code: R50.9 Status: Acute Plan: Patient with a MAXIMUM TEMPERATURE of 100.1. Check UA and chest x-ray to rule out infection. This could be possibly secondary to inflammation caused by surgical procedure. Assessment and Plan GI prophylaxis: PPI. DVT prophylaxis: SCDs, chemoprophylaxis as per orthopedic surgery. Problem Qualifiers (1) Hypertension: Qualified Code: I10 - Essential hypertension (2) Hyperlipemia: Qualified Code: E78.5 - Hyperlipidemia, unspecified hyperlipidemia type (3) Type 2 diabetes mellitus: Qualified Code: E11.9 - Type 2 diabetes mellitus without complication, without long-term current use of insulin (4) Osteoarthritis of right knee: Qualified Code: M17.11 - Primary osteoarthritis of right knee Harvinder Rivera MD Feb 24, 2017 13:48
--- NOTE | 2017-02-24 16:51 | RADRPT ---
EXAM DATE/TIME: 02/24/2017 16:04 [facility] COMPARISON: No previous studies available for comparison. INDICATIONS : Fever. MEDICAL HISTORY : Diabetes mellitus type II. Atrial fibrillation. SURGICAL HISTORY : Appendectomy. Inguinal hernia repair. Bilateral knee replacement. Cardiac stents. TURP. Laser prosta te reduction. ENCOUNTER: Subsequent ACUITY: 2 days PAIN SCORE: 0/10 LOCATION: Bilateral chest FINDINGS: The cardiac silhouette is enlarged in transverse diameter. The lungs are free of acute parenchymal op acity. No effusions are identified. The aortic knob is prominent with tortuosity of the descending th oracic aorta. There is a possible 10 mm nodule in the right hilum. CT scan is recommended for further evaluation if clinically indicated. CONCLUSION: 1. Cardiomegaly. No acute pulmonary disease. 2. Possible nodule right midlung. CT scan is recommended for further evaluation if clinically indicat ed. Modesto Silva MD on February 24, 2017 at 16:49 Board Certified Radiologist. This report was verified electronically.
[2017-02-24] MEDS: DOCUSATE SODIUM 100 MG CAP PO SCH (20:53)
[2017-02-24] MEDS: ATORVASTATIN 20 MG TAB PO SCH (20:53)
[2017-02-24] MEDS: MULTIVITAMINS/MINERALS THERAPEUTIC TAB PO SCH (20:54)
[2017-02-25] VITALS (7 sets, daily range): BP systolic 97–121; BP diastolic 59–66; PULSE 73–85; RESP 16–20; TEMP 97–99.4; O2SAT 93–100
[2017-02-25] MEDS: CHLORHEXIDINE GLUCONATE 4% SOLN 120 ML BTL TOPICAL SCH (02:31)
[2017-02-25] MEDS: PCA - TOTAL MG MORPHINE DELIVERED PER SHIFT SCH ×2 (05:13→11:18)
[2017-02-25] MEDS: INSULIN ASPART SUPPLEMENTAL SCALE SQ SCH ×4 (06:06→21:00)
--- NOTE | 2017-02-25 07:18 | PD.ORT.PN ---
Subjective Post Op Day #: 2 Pain Scale: 2 Subjective Remarks The patient is awake and alert and answers questions properly. He has minimal discomfort at rest. He has no other specific complaint. He was sleeping upon entering the room. Objective Vitals Vital Signs Date Time Temp Pulse Resp B/P Pulse Ox O2 Delivery O2 Flow Rate FiO2 02/25/17 05:13 16 02/25/17 04:00 97.0 77 16 108/63 94 02/25/17 00:00 97.0 73 17 101/59 94 02/24/17 20:54 16 02/24/17 20:00 97.6 84 18 104/56 95 02/24/17 18:32 Nasal Cannula 3.00 02/24/17 16:00 99.4 94 18 127/74 94 02/24/17 11:52 99.3 75 18 109/63 96 02/24/17 09:47 2.00 02/24/17 09:33 95 Nasal Cannula 3.00 02/24/17 08:00 98.4 72 18 115/65 94 I/O 02/24/17 02/24/17 02/24/17 02/25/17 02/25/17 02/25/17 07:00 15:00 23:00 07:00 15:00 23:00 Intake Total 989 ml 840 ml Output Total 380 ml 1150 ml 80 ml Balance 609 ml -310 ml -80 ml Intake Oral 240 ml 840 ml IV Total 749 ml Output Urine Total 250 ml 1050 ml Drainage Total 130 ml 100 ml 80 ml # Bowel Movements 0 0 Result Diagram: 02/24/17 0556 Imaging Last 72 hours Impressions Chest X-Ray 02/24/17 0000 Signed Impressions: Service Date/Time: Friday, February 24, 2017 16:04 - CONCLUSION: 1. Cardiomegaly. No acute pulmonary disease. 2. Possible nodule right midlung. CT scan is recommended for further evaluation if clinically indicated. Modesto Silva MD Knee X-Ray 02/23/17 0000 Signed Impressions: Service Date/Time: Thursday, February 23, 2017 11:24 - CONCLUSION: Appropriate postoperative appearance of the right knee status post total arthroplasty. Demetrio Weir MD Objective Remarks The right lower extremity dressing is dry and intact. He moves his toes and ankle freely. He has no calf discomfort and negative Homans sign. Neurologically no focal deficit. Assessment & Plan Ortho Post Op Day #: 2 Problem List: (1) Total knee replacement status Assessment and Plan The patient's orthopedic status is stable postoperative day #2. Progress rehabilitation. Anticoagulation with Eloquis which is a preoperative medication. Anticipate discharge 02/26/17 to [facility] Victorino Roque MD Feb 25, 2017 07:18
[2017-02-25] MEDS: MAGNESIUM HYDROXIDE SUSP 30 ML CUP PO PRN (08:51)
[2017-02-25] MEDS: CETIRIZINE HCL 10 MG TAB PO SCH (08:52)
[2017-02-25] MEDS: APIXABAN 5 MG TABLET PO SCH ×2 (08:52→20:23)
[2017-02-25] MEDS: metFORMIN HCL 500 MG TAB PO SCH ×2 (08:52→17:17)
[2017-02-25] MEDS: FUROSEMIDE 20 MG TAB PO SCH (08:53)
[2017-02-25] MEDS: MULTIVITAMINS/MINERALS THERAPEUTIC TAB PO SCH ×2 (08:53→20:23)
[2017-02-25] MEDS: SODIUM CHLORIDE 0.9% FLUSH 10 ML FLUSH IV FLUSH SCH ×2 (08:54→20:22)
[2017-02-25] MEDS: DOCUSATE SODIUM 100 MG CAP PO SCH ×2 (08:54→20:22)
[2017-02-25] MEDS: glipiZIDE 10 MG TAB PO SCH (08:54)
[2017-02-25] MEDS: MAGNESIUM OXIDE 400 MG TAB PO SCH (08:57)
[2017-02-25] MEDS: CALCIUM CARBONATE 1.25 GM (CA 500 MG) TAB PO SCH (08:57)
[2017-02-25] MEDS ORDERED: CARBOXYMETHYLCELL SOD 0.5% OPTH SOLN 15 ML BTL EACH EYE PRN (10:45)
--- NOTE | 2017-02-25 11:46 | HHI.PR ---
Subjective Remarks c/o dry eyes denies cp/sob pain controlled hemoglobin dropped from 14.4 to 11.3 stable vital signs denies fevers/chills Objective Vitals Vital Signs Date Time Temp Pulse Resp B/P Pulse Ox O2 Delivery O2 Flow Rate FiO2 02/25/17 11:18 16 02/25/17 10:10 96 21 02/25/17 08:00 99.0 80 18 97/65 98 02/25/17 05:13 16 02/25/17 04:00 97.0 77 16 108/63 94 02/25/17 00:00 97.0 73 17 101/59 94 02/24/17 20:54 16 02/24/17 20:00 97.6 84 18 104/56 95 02/24/17 18:32 Nasal Cannula 3.00 02/24/17 16:00 99.4 94 18 127/74 94 02/24/17 11:52 99.3 75 18 109/63 96 I/O 02/24/17 02/24/17 02/24/17 02/25/17 02/25/17 02/25/17 07:00 15:00 23:00 07:00 15:00 23:00 Intake Total 989 ml 840 ml 240 ml 637 ml Output Total 380 ml 1150 ml 80 ml Balance 609 ml -310 ml 160 ml 637 ml Intake Oral 240 ml 840 ml 240 ml IV Total 749 ml 637 ml Output Urine Total 250 ml 1050 ml Drainage Total 130 ml 100 ml 80 ml # Voids 1 # Bowel Movements 0 0 0 Result Diagram: 02/24/17 0556 Imaging Last Impressions Chest X-Ray 02/24/17 0000 Signed Impressions: Service Date/Time: Friday, February 24, 2017 16:04 - CONCLUSION: 1. Cardiomegaly. No acute pulmonary disease. 2. Possible nodule right midlung. CT scan is recommended for further evaluation if clinically indicated. Modesto Silva MD Knee X-Ray 02/23/17 0000 Signed Impressions: Service Date/Time: Thursday, February 23, 2017 11:24 - CONCLUSION: Appropriate postoperative appearance of the right knee status post total arthroplasty. Demetrio Weir MD Objective Remarks GENERAL: This is a well-nourished, well-developed patient, in no apparent distress. SKIN: No rashes, ecchymoses or lesions. Cool and dry. HEAD: Atraumatic. Normocephalic. No temporal or scalp tenderness. EYES: Pupils equal round and reactive. Extraocular motions intact. No scleral icterus. No injection or drainage. ENT: Nose without bleeding, purulent drainage or septal hematoma. Throat without erythema, tonsillar hypertrophy or exudate. Uvula midline. Airway patent. NECK: Trachea midline. No JVD or lymphadenopathy. Supple, nontender, no meningeal signs. CARDIOVASCULAR: Regular rate and rhythm without murmurs, gallops, or rubs. RESPIRATORY: Clear to auscultation. Breath sounds equal bilaterally. No wheezes , rales, or rhonchi. GASTROINTESTINAL: Abdomen soft, non-tender, nondistended. No hepato-splenomegaly , or palpable masses. No guarding. MUSCULOSKELETAL: right knee covered with clean dressing. NEUROLOGICAL: Awake and alert. Cranial nerves II through XII intact. Motor and sensory grossly within normal limits. Five out of 5 muscle strength in all muscle groups. Normal speech. Procedures Status post right total knee arthroplasty on 02/23/17. Medications and IVs Current Medications Medications (Trade) Dose Ordered Sig/Kang Route Start Time Stop Time Status Last Admin (Hibiclens 4% Top Soln) 1 applic ONCE TOPICAL 02/23/17 06:30 02/26/17 06:29 (Eliquis) 5 mg BID PO 02/23/17 21:00 02/25/17 08:52 (ZyrTEC) 10 mg DAILY PO 02/24/17 09:00 02/25/17 08:52 (Lasix) 20 mg DAILY PO 02/24/17 09:00 02/24/17 09:42 (Glucotrol) 10 mg DAILY PO 02/24/17 09:00 02/25/17 08:54 (Glucophage) 1,000 mg BIDPC PO 02/23/17 18:00 02/25/17 08:52 (Diovan) 160 mg HS PRN PO 02/23/17 09:45 Patient Own Medication PT OWN MED: ULORIC (FEBUXOST... DAILY PO 02/24/17 09:00 Hold Patient Own Medication PT OWN MED: MOMETASONE TOPI... DAILY PRN TOPICAL 02/23/17 11:45 Hold Atorvastatin Calcium 20 mg 20 mg HS PO 02/23/17 21:00 02/24/17 20:53 (Lr 1000 ml Inj) 1,000 ml @ 80 mls/hr [id number] IV 02/23/17 11:00 02/24/17 23:46 (NS Flush) 2 ml UNSCH PRN IV FLUSH 02/23/17 09:45 (NS Flush) 2 ml BID IV FLUSH 02/23/17 21:00 02/25/17 08:54 ([facility] Information) ONCE ONCE XX 02/25/17 12:00 02/25/17 12:01 (Morphine Inj) 4 mg Q3H PRN IV PUSH 02/23/17 11:00 (Percocet 5-325 Mg) 1 tab Q4H PRN PO 02/23/17 09:45 02/25/17 09:11 (Percocet 5-325 Mg) 2 tab Q4H PRN PO 02/23/17 09:45 (Tylenol) 650 mg Q6H PRN PO 02/23/17 09:45 (Theragran M Tab) 1 tab BID PO 02/24/17 21:00 04/25/17 20:59 02/25/17 08:53 (Zofran Inj) 4 mg Q6H PRN IVP 02/23/17 09:45 (Colace) 100 mg BID PO 02/24/17 21:00 02/25/17 08:54 (Mag-Al Plus Susp Liq) 30 ml Q6H PRN PO 02/23/17 09:45 (Restoril) 15 mg HS PRN PO 02/23/17 09:45 (Dulcolax Supp) 10 mg DAILY PRN RECTAL 02/23/17 09:45 (Milk Of Magnesia Liq) 30 ml DAILY PRN PO 02/23/17 09:45 02/25/17 08:51 (Oscal) 500 mg DAILY@11 PO 02/24/17 11:00 02/25/17 08:57 (Mag-Ox) 200 mg DAILY@11 PO 02/24/17 11:00 02/25/17 08:57 (Pill Splitter) 1 ea UNSCH PRN OTHER 02/23/17 11:30 (D50w (Vial) Inj) 25 ml UNSCH PRN IV PUSH 02/23/17 13:45 (Glucagon Inj) 1 mg UNSCH PRN OTHER 02/23/17 13:45 (Refresh Tears 0.5% Opth Soln) 1 drop Q6H PRN EACH EYE 02/25/17 10:45 Urinary Catheter: No Vascular Central Line Catheter: No A/P Problem List: (1) Total knee replacement status ICD Code: Z96.659 Status: Acute Plan: Status post right knee arthroplasty POD 2. Continue management as per orthopedic surgery. (2) Hypertension ICD Code: I10 Status: Chronic Plan: BP seems to be stable. Continue valsartan. (3) Hyperlipemia ICD Code: E78.5 Status: Acute Plan: Continue statin. stable. (4) Type 2 diabetes mellitus ICD Code: E11.9 Status: Acute Plan: Patient currently on metformin and is SSI with insulin NovoLog. Blood sugar seems to be stable. (5) Osteoarthritis of right knee ICD Code: M17.11 Status: Acute Plan: As above. (6) Low grade fever ICD Code: R50.9 Status: Acute Plan: Patient with a MAXIMUM TEMPERATURE of 100.1. Check UA and chest x-ray to rule out infection. This could be possibly secondary to inflammation caused by surgical procedure. 02/25 CXR does not shown any sign of infection. Possible right lung nodule described. Will order CT chest without contrast to better asses. (7) Dry eyes ICD Code: H04.123 Status: Acute Plan: Patient c/o dry eyes. Will start artificial tears. Assessment and Plan GI prophylaxis: PPI. DVT prophylaxis: SCDs, chemoprophylaxis as per orthopedic surgery. Discharge Planning Possible Dc in am pending orthopedic surgery clearance. Problem Qualifiers (1) Hypertension: Qualified Code: I10 - Essential hypertension (2) Hyperlipemia: Qualified Code: E78.5 - Hyperlipidemia, unspecified hyperlipidemia type (3) Type 2 diabetes mellitus: Qualified Code: E11.9 - Type 2 diabetes mellitus without complication, without long-term current use of insulin (4) Osteoarthritis of right knee: Qualified Code: M17.11 - Primary osteoarthritis of right knee Harvinder Rivera MD Feb 25, 2017 11:46
[2017-02-25] MEDS ORDERED: MISCELLANEOUS PHARMACY INFORMATION XX ONE (12:00)
[2017-02-25 12:50] LABS: HEMATOCRIT 33.7 % (39.0-51.0); MEAN CELL VOLUME 86.5 FL (80.0-100.0); MEAN CORPUSCULAR HGB CONC 33.5 % (32.0-36.0); PLATELET COUNT 176 TH/MM3 (150-450); RED BLOOD COUNT 3.89 MIL/MM3 (4.50-5.90); RED CELL DISTRIBUTION WIDTH 13.8 % (11.6-17.2); REVIEW FLAG FINAL; WHITE BLOOD COUNT 12.1 TH/MM3 (4.0-11.0)
[2017-02-25] MEDS: LACTATED RINGER'S 1000 ML INJ 1,000 ML IV SCH ×2 (13:00→22:11)
[2017-02-25] MEDS: oxyCODONE/ACETAMINOPHEN 5 MG/325 MG TAB PO PRN (13:55)
--- NOTE | 2017-02-25 18:06 | RADRPT ---
EXAM DATE/TIME: 02/25/2017 17:38 [facility] COMPARISON: No previous studies available for comparison. INDICATIONS : Evaluate lung nodule seen on xray RADIATION DOSE: 9.89 CTDIvol (mGy) MEDICAL HISTORY : Cardiovascular disease. Diabetes mellitus type 2. Hypertension. SURGICAL HISTORY : Appendectomy. TURP,fnee and foot repair ENCOUNTER: Initial ACUITY: 1 day PAIN SCALE: 2/10 LOCATION: chest TECHNIQUE: Volumetric scanning of the chest was performed. Using automated exposure control and adjustment of t he mA and/or kV according to patient size, radiation dose was kept as low as reasonably achievable to obtain optimal diagnostic quality images. FINDINGS: There is linear parenchymal scarring in both lungs. No suspicious lung mass or nodule. There is moderate to severe coronary artery calcifications. No hilar, mediastinal or axillary adenopa thy. There is no pleural or pericardial effusion. No acute bony abnormalities. Multiple hepatic cysts. Multiple gallstones in the gallbladder. Benign-appearing capsular calcificati on the spleen. Stomach is mildly distended. CONCLUSION: 1. Parenchymal scarring in the lungs without discrete mass or nodule. 2. Severe coronary artery calcifications. 3. Multiple gallstones. 4. Mild gastric distention. Hepatic cysts. Angel Garcia MD on February 25, 2017 at 18:01 Board Certified Radiologist. This report was verified electronically.
[2017-02-25] MEDS: ATORVASTATIN 20 MG TAB PO SCH (20:22)
[2017-02-25 21:13] LABS: BLOOD, URINE NEG (NEG); COMMENT (UR) CULT NOT INDICATED; CULTURE IF INDICATED CULT NOT INDICATED; GLUCOSE,URINE NEG (NEG); KETONE, URINE NEG (NEG); MUCUS URINE FEW /lpf (OCC); NITRITE,URINE NEG (NEG); PH, URINE 5.5 (5.0-8.5); SQUAMOUS EPITHELIAL CELL URINE <1 /hpf (0-5); URINE COLOR YELLOW (YELLW/STRAW)
[2017-02-26 00:13] VITALS: BP 106/67; PULSE 64; RESP 19; TEMP 96; O2SAT 100
[2017-02-26] MEDS: INSULIN ASPART SUPPLEMENTAL SCALE SQ SCH ×2 (06:02→11:00)
--- NOTE | 2017-02-26 07:13 | PD.ORT.PN ---
Subjective Post Op Day #: 3 Pain Scale: 3 Subjective Remarks The patient is awake and alert and answers questions properly. He has minimal discomfort at rest. He has no other specific complaint. He related some bloody drainage requiring a dressing change. His UA was clear and his chest x- ray did not show any mass. Objective Vitals Vital Signs Date Time Temp Pulse Resp B/P Pulse Ox O2 Delivery O2 Flow Rate FiO2 02/26/17 00:13 96.0 64 19 106/67 100 02/25/17 20:25 99.0 85 20 109/66 100 02/25/17 16:00 99.2 79 18 114/66 99 02/25/17 12:00 99.4 80 18 121/62 93 02/25/17 11:18 16 02/25/17 10:10 96 21 02/25/17 08:00 99.0 80 18 97/65 98 I/O 02/25/17 02/25/17 02/25/17 02/26/17 02/26/17 02/26/17 07:00 15:00 23:00 07:00 15:00 23:00 Intake Total 240 ml 637 ml 840 ml Output Total 80 ml 60 ml 800 ml Balance 160 ml 577 ml 40 ml Intake Oral 240 ml 840 ml IV Total 637 ml Output Urine Total 800 ml Drainage Total 80 ml 60 ml # Voids 1 # Bowel Movements 0 0 Result Diagram: 02/25/17 1240 Other Results Laboratory Tests Test 02/25/17 02/25/17 12:40 19:58 White Blood Count 12.1 TH/MM3 Red Blood Count 3.89 MIL/MM3 Hemoglobin 11.3 GM/DL Hematocrit 33.7 % Mean Corpuscular Volume 86.5 FL Mean Corpuscular Hemoglobin 29.0 PG Mean Corpuscular Hemoglobin 33.5 % Concent Red Cell Distribution Width 13.8 % Platelet Count 176 TH/MM3 Mean Platelet Volume 7.2 FL Urine Color YELLOW Urine Turbidity CLEAR Urine pH 5.5 Urine Specific Wheeler 1.018 Urine Protein TRACE mg/dL Urine Glucose (UA) NEG mg/dL Urine Ketones NEG mg/dL Urine Occult Blood NEG Urine Nitrite NEG Urine Bilirubin NEG Urine Urobilinogen LESS THAN 2.0 MG/DL Urine Leukocyte Esterase NEG Urine RBC 1 /hpf Urine WBC 2 /hpf Urine Squamous Epithelial <1 /hpf Cells Urine Mucus FEW /lpf Urine Sperm OCC Microscopic Urinalysis Comment CULT NOT INDICATED Imaging Last [address] 02/25/17 0000 Signed Impressions: Service Date/Time: Saturday, February 25, 2017 17:38 - CONCLUSION: 1. Parenchymal scarring in the lungs without discrete mass or nodule. 2. Severe coronary artery calcifications. 3. Multiple gallstones. 4. Mild gastric distention. Hepatic cysts. Angel Garcia MD Chest X-Ray 02/24/17 0000 Signed Impressions: Service Date/Time: Friday, February 24, 2017 16:04 - CONCLUSION: 1. Cardiomegaly. No acute pulmonary disease. 2. Possible nodule right midlung. CT scan is recommended for further evaluation if clinically indicated. Modesto Silva MD Last 72 hours Impressions Chest X-Ray 02/24/17 0000 Signed Impressions: Service Date/Time: Friday, February 24, 2017 16:04 - CONCLUSION: 1. Cardiomegaly. No acute pulmonary disease. 2. Possible nodule right midlung. CT scan is recommended for further evaluation if clinically indicated. Modesto Silva MD Knee X-Ray 02/23/17 0000 Signed Impressions: Service Date/Time: Thursday, February 23, 2017 11:24 - CONCLUSION: Appropriate postoperative appearance of the right knee status post total arthroplasty. Demetrio Weir MD Procedures Right total knee arthroplasty 02/23/17 Objective Remarks The right lower extremity dressing is dry and intact. He moves his toes and ankle freely. He has no calf discomfort and negative Homans sign. Neurologically no focal deficit. Assessment & Plan Ortho Post Op Day #: 3 Problem List: (1) Total knee replacement status Assessment and Plan The patient's orthopedic status is stable postoperative day #3 for discharge to rehabilitation. Follow-up as scheduled. He will continue Victorino Ruiz MD Feb 26, 2017 07:12
[2017-02-26] MEDS ORDERED: OXYC1TAB63 PO (07:16)
[2017-02-26] MEDS ORDERED: GETGO ROLLING W1 MI1 (07:19)
[2017-02-26] MEDS ORDERED: CPMMACHINE (07:19)
[2017-02-26] MEDS ORDERED: MISC-163 (07:19)
--- NOTE | 2017-02-26 07:26 | HHI.DS ---
Discharge Summary Admission Date Feb 23, 2017 at 05:14 Discharge Date: Feb 26, 2017 Admitting Diagnosis Osteoarthritis right knee Diagnosis: (1) Total knee replacement status (2) Osteoarthritis of right knee Diagnosis: Principal (3) Hypertension (4) Hyperlipemia (5) Type 2 diabetes mellitus (6) Coronary arteriosclerosis Procedures Right total knee arthroplasty 02/23/17 Brief History This is a 82 year old male patient with a long history of bilateral knee osteoarthritis. He has undergone a previous left total knee arthroplasty and an out-of-town location. He has had progressive discomfort involving his right knee. He has been unresponsive to nonoperative measures recently. X-rays are consistent with advanced osteoarthritis. He is severely limited in his activity and given the alternatives of the treatment wishes to pursue total knee arthroplasty at this time. CBC/BMP: 02/25/17 1240 Significant Findings Laboratory Tests Test 02/24/17 02/25/17 02/25/17 05:56 12:40 19:58 Hemoglobin 11.3 GM/DL 11.3 GM/DL (13.0-17.0) (13.0-17.0) Hematocrit 32.4 % 33.7 % (39.0-51.0) (39.0-51.0) White Blood Count 12.1 TH/MM3 (4.0-11.0) Red Blood Count 3.89 MIL/MM3 (4.50-5.90) Urine Mucus FEW /lpf (OCC) Urine Sperm OCC (NONE) Imaging Postoperative x-ray 02/23/17- two views of the right knee reveal good positioning of the total knee replacement Last [address] 02/25/17 0000 Signed Impressions: Service Date/Time: Saturday, February 25, 2017 17:38 - CONCLUSION: 1. Parenchymal scarring in the lungs without discrete mass or nodule. 2. Severe coronary artery calcifications. 3. Multiple gallstones. 4. Mild gastric distention. Hepatic cysts. Anegl Garcia MD Chest X-Ray 02/24/17 0000 Signed Impressions: Service Date/Time: Friday, February 24, 2017 16:04 - CONCLUSION: 1. Cardiomegaly. No acute pulmonary disease. 2. Possible nodule right midlung. CT scan is recommended for further evaluation if clinically indicated. Modesto Silva MD PE at Discharge The right lower extremity dressing is dry and intact. He moves his toes and ankle freely. He has no calf discomfort and negative Homans sign. Neurologically no focal deficit. Hospital Course On the day of admission the patient was taken to the operating room where he underwent a right total knee arthroplasty. The patient tolerated the procedure well. For details of the operative procedure please see dictated operative note. The patient was placed on Ancef for infection prophylaxis and resumed his preoperative Eliquis to also covered DVT prophylaxis. The medical service was consulted for medical management and was very helpful in this regard. Physical therapy was consulted for gait training and lower extremity exercise per TKR protocol. Case management was consulted for discharge planning. The patient felt he would benefit from assisted facility upon discharge for continuation of rehabilitation. The patient did have a low-grade temperature on postoperative day #2. A chest x-ray and urinalysis were completed. There was an area of concern on the chest x-ray and therefore a CT scan of the chest was completed which was negative for any mass. Urinalysis was clear. The patient progressed well daily. At the time of discharge she was afebrile. He has slight bloody drainage from the drain site but otherwise the incision was noted to be healing well. He had no calf discomfort and a negative Homans sign. He will follow with the undersigned in approximately 3 weeks. Orders have been given for dressing changes and staple removal. He will continue Eliquis and was prescribed Percocet for pain. The patient acknowledges full understanding of the plan of treatment and agrees to it. Pt Condition on Discharge: Good Discharge Disposition: Discharge to SNF Discharge Instructions Diet Instructions: Heart Healthy Diet, Diabetic Diet Activities You Can Perform: Weight Bearing as Jonathan Activities to Avoid: Lifting/Bending Victorino Roque MD Feb 26, 2017 07:26
[2017-02-26 08:00] VITALS: BP 106/65; PULSE 79; RESP 18; TEMP 99; O2SAT 96
[2017-02-26] MEDS: FUROSEMIDE 20 MG TAB PO SCH (09:00)
[2017-02-26] MEDS: SODIUM CHLORIDE 0.9% FLUSH 10 ML FLUSH IV FLUSH SCH (09:00)
[2017-02-26] MEDS: glipiZIDE 10 MG TAB PO SCH (09:26)
[2017-02-26] MEDS: MULTIVITAMINS/MINERALS THERAPEUTIC TAB PO SCH (09:26)
[2017-02-26] MEDS: DOCUSATE SODIUM 100 MG CAP PO SCH (09:26)
[2017-02-26] MEDS: APIXABAN 5 MG TABLET PO SCH (09:26)
[2017-02-26] MEDS: CETIRIZINE HCL 10 MG TAB PO SCH (09:26)
[2017-02-26] MEDS: metFORMIN HCL 500 MG TAB PO SCH (09:27)
[2017-02-26] MEDS: oxyCODONE/ACETAMINOPHEN 5 MG/325 MG TAB PO PRN (09:27)
[2017-02-26] MEDS: CALCIUM CARBONATE 1.25 GM (CA 500 MG) TAB PO SCH (11:55)
[2017-02-26] MEDS: MAGNESIUM OXIDE 400 MG TAB PO SCH (11:55)
[2017-02-26] MEDS: LACTATED RINGER'S 1000 ML INJ 1,000 ML IV SCH (12:33)
--- NOTE | 2017-02-26 13:26 | HHI.PR ---
Subjective Remarks patient seen earlier at 9 am denies cp/sob pain controlled afebrile vital signs stable Objective Vitals Vital Signs Date Time Temp Pulse Resp B/P Pulse Ox O2 Delivery O2 Flow Rate FiO2 02/26/17 08:00 99.0 79 18 106/65 96 02/26/17 00:13 96.0 64 19 106/67 100 02/25/17 20:25 99.0 85 20 109/66 100 02/25/17 16:00 99.2 79 18 114/66 99 I/O 02/25/17 02/25/17 02/25/17 02/26/17 02/26/17 02/26/17 07:00 15:00 23:00 07:00 15:00 23:00 Intake Total 240 ml 637 ml 840 ml 360 ml Output Total 80 ml 60 ml 800 ml Balance 160 ml 577 ml 40 ml 360 ml Intake Oral 240 ml 840 ml 360 ml IV Total 637 ml Output Urine Total 800 ml Drainage Total 80 ml 60 ml # Voids 1 1 # Bowel Movements 0 0 1 Result Diagram: 02/25/17 1240 Objective Remarks GENERAL: This is a well-nourished, well-developed patient, in no apparent distress. SKIN: No rashes, ecchymoses or lesions. Cool and dry. HEAD: Atraumatic. Normocephalic. No temporal or scalp tenderness. EYES: Pupils equal round and reactive. Extraocular motions intact. No scleral icterus. No injection or drainage. ENT: Nose without bleeding, purulent drainage or septal hematoma. Throat without erythema, tonsillar hypertrophy or exudate. Uvula midline. Airway patent. NECK: Trachea midline. No JVD or lymphadenopathy. Supple, nontender, no meningeal signs. CARDIOVASCULAR: Regular rate and rhythm without murmurs, gallops, or rubs. RESPIRATORY: Clear to auscultation. Breath sounds equal bilaterally. No wheezes , rales, or rhonchi. GASTROINTESTINAL: Abdomen soft, non-tender, nondistended. No hepato-splenomegaly , or palpable masses. No guarding. MUSCULOSKELETAL: right knee covered with clean dressing. NEUROLOGICAL: Awake and alert. Cranial nerves II through XII intact. Motor and sensory grossly within normal limits. Five out of 5 muscle strength in all muscle groups. Normal speech. Procedures Status post right total knee arthroplasty on 02/23/17. A/P Problem List: (1) Total knee replacement status ICD Code: Z96.659 Status: Acute Plan: Status post right knee arthroplasty POD 3. Patient being discharged today. (2) Hypertension ICD Code: I10 Status: Chronic Plan: BP seems to be stable. Continue valsartan. (3) Hyperlipemia ICD Code: E78.5 Status: Acute Plan: Continue statin. stable. (4) Type 2 diabetes mellitus ICD Code: E11.9 Status: Acute Plan: Patient currently on metformin and is SSI with insulin NovoLog. Blood sugar seems to be stable. (5) Osteoarthritis of right knee ICD Code: M17.11 Status: Acute Plan: As above. (6) Low grade fever ICD Code: R50.9 Status: Acute Plan: Patient with a MAXIMUM TEMPERATURE of 100.1. Check UA and chest x-ray to rule out infection. This could be possibly secondary to inflammation caused by surgical procedure. / CXR does not shown any sign of infection. Possible right lung nodule described. Will order CT chest without contrast to better asses. 02/26 urinalysis negative. Patient is clear for DC. (7) Dry eyes ICD Code: H04.123 Status: Acute Plan: Patient c/o dry eyes. Improved with artificial tears Assessment and Plan GI prophylaxis: PPI. DVT prophylaxis: SCDs, chemoprophylaxis as per orthopedic surgery. Discharge Planning DC as per primary team. Problem Qualifiers (1) Hypertension: Qualified Code: I10 - Essential hypertension (2) Hyperlipemia: Qualified Code: E78.5 - Hyperlipidemia, unspecified hyperlipidemia type (3) Type 2 diabetes mellitus: Qualified Code: E11.9 - Type 2 diabetes mellitus without complication, without long-term current use of insulin (4) Osteoarthritis of right knee: Qualified Code: M17.11 - Primary osteoarthritis of right knee Harvinder Rivera MD Feb 26, 2017 13:25
== END 2017-02-26 12:51 | DRG 470 ==
LOC: HSDI 02-23 05:14 → N06A 02-23 11:55
PROVIDERS: ADMIT Orthopaedic Surgery Sports Medicine; ATTEND Orthopaedic Surgery Sports Medicine
PROC: 3E0T3BZ Introduction of Anesthetic Agent into Peripheral Nerves and Plexi, Percutaneous Approach (ICD-10-PCS; 2017-02-23)
PROC: 0SRC0J9 Replacement of Right Knee Joint with Synthetic Substitute, Cemented, Open Approach (ICD-10-PCS; principal; 2017-02-23 07:37)
DX: M17.11 Unilateral primary osteoarthritis, right knee (principal); I48.91 Unspecified atrial fibrillation; Z79.02 Long term (current) use of antithrombotics/antiplatelets; E11.9 Type 2 diabetes mellitus without complications; Z79.84 Long term (current) use of oral hypoglycemic drugs; R50.9 Fever, unspecified; I10 Essential (primary) hypertension; M21.161 Varus deformity, not elsewhere classified, right knee; Z96.652 Presence of left artificial knee joint; I25.10 Atherosclerotic heart disease of native coronary artery without angina pectoris; M10.9 Gout, unspecified; N40.0 Benign prostatic hyperplasia without lower urinary tract symptoms; E78.5 Hyperlipidemia, unspecified; G47.30 Sleep apnea, unspecified; H04.123 Dry eye syndrome of bilateral lacrimal glands
CPT/HCPCS: 36430; 71010; 71250; 73560; 81001; 82948; 85014; 85018; 85027; 86850; 86900; 86901; 94150; C1776; J0131; J0690; J1815; J2250; J2270; J2370; J2405; J2710; J3010; J3370; J7050; J7120; L1830

== ENCOUNTER → 2017-02-02 | Outpatient (CLI) | payer MEDICARE ==
[~2017-02-02] MED LIST: 1-ME1LIQ PO; APIX5TAB PO; ASPI81TA82 PO; CAL-500T PO; CPMMACHINE; FURO20TA PO; GETGO ROLLING W1 MI1; GLIP10TA6 PO; GLUC1000 PO; GLUC10TA3 PO; LACTCAP8 PO; METF1000 PO; MISC-163; MISC1TAB9 PO; MOME0.05 TOP; MOME0.1O20 TOPICAL; OMEG100010 PO; OMEG1CAP53 PO; OXYC1TAB63 PO; PLAV75TA PO; PRIM50TA PO; ROSU10 PO; ROSU1TAB6 PO; ULOR40TA PO; VALS1TAB65 PO; ZYRT10CA PO; ZYRT10TA12 PO
[2017-02-02 12:48] LABS: AUTOMATED NEUTROPHIL # 4.7 TH/MM3 (1.8-7.7); BASOPHIL # 0.1 TH/MM3 (0-0.2); BASOPHIL % 0.7 % (0.0-2.0); EOSINOPHIL # 0.3 TH/MM3 (0-0.4); EOSINOPHIL % 4.1 % (0.0-4.0); HEMATOCRIT 42.6 % (39.0-51.0); HEMO FLAGS DIFF FINAL; LYMPH % 26.7 % (9.0-44.0); MEAN CELL VOLUME 87.9 FL (80.0-100.0); MEAN CORPUSCULAR HEMOGLOBIN 29.7 PG (27.0-34.0); MEAN CORPUSCULAR HGB CONC 33.8 % (32.0-36.0); MONO % 6.2 % (0.0-8.0); NEUT % 62.3 % (16.0-70.0); PLATELET COUNT 160 TH/MM3 (150-450); RED BLOOD COUNT 4.85 MIL/MM3 (4.50-5.90); RED CELL DISTRIBUTION WIDTH 13.9 % (11.6-17.2); WHITE BLOOD COUNT 7.5 TH/MM3 (4.0-11.0)
[2017-02-02 13:16] LABS: APTT (PATIENT) 31.1 SEC (24.3-30.1); PROTHROMBIN TIME - PATIENT 11.6 SEC (9.8-11.6)
[2017-02-02 13:21] LABS: BICARBONATE 30.1 MEQ/L (21.0-32.0); POTASSIUM 4.3 MEQ/L (3.5-5.1)
[2017-02-02 13:43] LABS: BLOOD, URINE NEG (NEG); COMMENT (UR) CULT NOT INDICATED; CULTURE IF INDICATED CULT NOT INDICATED; GLUCOSE,URINE NEG (NEG); KETONE, URINE NEG (NEG); MUCUS URINE FEW /lpf (OCC); NITRITE,URINE NEG (NEG); URINE COLOR LIGHT-YELLOW (YELLW/STRAW)
--- NOTE | 2017-02-02 14:36 | RADRPT ---
EXAM DATE/TIME: 02/02/2017 14:00 [facility] COMPARISON: CHEST PA & LAT, March 10, 2016, 12:23. INDICATIONS : Evaluate for Communicable Disease, Pneumonia, Pnuemothorax. Preop Knee Surgery MEDICAL HISTORY : Cardiovascular disease. SURGICAL HISTORY : Coronary artery stent. ENCOUNTER: Initial ACUITY: 1 day PAIN SCORE: 0/10 LOCATION: Bilateral chest FINDINGS: PA and lateral views of the chest demonstrate the lungs to be symmetrically aerated without evidence of mass, infiltrate or effusion. The cardiomediastinal contours are unremarkable. Osseous structure s are intact. CONCLUSION: No acute disease. Abraham Kennedy MD on February 02, 2017 at 14:33 Board Certified Radiologist. This report was verified electronically.
[2017-02-02 15:11] LABS: MRSA PCR NEGATIVE (NEGATIVE); STAPH AUREUS PCR NEGATIVE (NEGATIVE)
--- NOTE | 2017-02-03 15:01 | EKG ---
Date Performed: 02/02/2017 Time Performed: 12:22:35 PTAGE: 81 years EKG: Sinus rhythm WITH FIRST DEGREE AV BLOCK WITH FREQUENT VENTRICULAR PREMATURE COMPLEXES POSSIBLE RIGHT VENTRICULAR CONDUCTION DELAY INFERIOR MYOCARDIAL INFARCTION, PROBABLY OLD WITH POSTERIOR EXTENSION ABNORMAL ECG C ompared to PREVIOUS TRACING , PVCs are new. PREVIOUS TRACIN03/10/2016 09.05 DOCTOR: Viktor Jones Interpretating Date/Time 02/03/2017 14:58:10
== END ==
LOC: CPRE 11:48
PROVIDERS: ATTEND Orthopaedic Surgery Sports Medicine
DX: M79.609 Pain in unspecified limb (principal); M17.11 Unilateral primary osteoarthritis, right knee; Z96.60 Presence of unspecified orthopedic joint implant; Z79.01 Long term (current) use of anticoagulants
CPT/HCPCS: 36415; 71020; 80048; 81001; 85025; 85610; 85730; 87640; 87641; 93005